=== PATIENT | male | born 1960 | race Caucasian/White ===

== ENCOUNTER 2024-08-15 06:23 | Day surgery (SDC) | payer BC, SELFPAY ==
[2024-08-09 14:08] LABS: Hematocrit 38.4 % (39.0-52.0); Mean Corp Hgb Conc. 33.9 g/dL (33.0-37.0); Mean Corpuscular Hgb 31.8 pg (27.0-31.0); Mean Corpuscular Volume 93.9 fL (80.0-94.0); Mean Platelet Volume 9.4 fL (7.4-10.4); Platelet Count 248 10^3/uL (130-400); Red Blood Cell Count 4.09 10^6/uL (4.70-6.10); Red Cell Dist. Width 13.2 % (11.5-14.5); White Blood Cell Count 4.9 10^3/uL (4.8-10.8)
[2024-08-09 14:13] VITALS: BMI 29.3
[2024-08-09 14:31] LABS: Blood Urea Nitrogen 19 mg/dl (9-20); Calcium 9.5 mg/dl (8.4-10.2); Carbon Dioxide 30 mmol/L (22-30); Chloride 102 mmol/L (98-107); Estimated Creatinine Clearance > 125 ml/min; Glucose 102 mg/dl (70-99); Potassium 4.7 mmol/L (3.5-5.1); Sodium 141 mmol/L (135-145); eGFR > 60.00
[2024-08-15] VITALS (8 sets, daily range): BP systolic 122–139; BP diastolic 77–95; BMI 29.3
--- NOTE | 2024-08-15 06:51 | HP.FOC2 ---
Focused History & Physical
Chief Complaint
HPI:
Chief Complaint: Bilateral inguinal hernias
HPI / Indication for Planned Procedure: Patient is a 64-year-old male with recent history of right inguinal swelling that has slowly increased in size. He has an awareness of his hernia being present on a regular basis. There is visible swelling
which is reducible. No significant associated pain. No symptom suggestive of intermittent incarceration or obstruction. Outpatient evaluation confirmed the presence of a readily apparent and visible right inguinal hernia and reducible left
inguinal hernia recurrence. He presents today for scheduled operative correction.
Relevant Past Medical History: Other (Insomnia, anxiety, BPH)
Relevant Social History: Negative
Relevant Family History: Negative
Relevant Past Surgical History: Positive for (Left inguinal hernia repair as a child, left knee arthroscopy)
Review of Systems
Review of Pertinent Systems: All Systems Negative
Medication
See Medication form for detailed medications: Yes
Medication List (including Herbals & OTC):
diphenhydramine HCl 50 mg capsule (Unisom SleepGels) 50 mg PO HS 08/08/24
tamsulosin 0.4 mg capsule 0.4 mg PO HS 08/08/24
Medications Reviewed: Yes
Allergies and Reactions
Patient has Allergies: No
Noted Allergies and Reactions:
Allergy/AdvReac Type Severity Reaction Status Date / Time
No Known Allergies Allergy Unverified 08/08/24 09:44
Pertinent Physical Exam
All Other Systems: Negative
Head/Neck: Normal
Lungs: Normal
Heart: Normal
Abdomen: Other (Bilateral inguinal hernias right larger than left. Left inguinal surgical scar)
Extremities: Normal
Neurological: Normal
Diagnosis / Assessment
64-year-old male presenting for scheduled operative correction of bilateral inguinal hernias. Right side initial, left side recurrent from childhood repair.
Plan / Procedure
Robotic assisted laparoscopic repair of bilateral inguinal hernias with mesh
Anesthesia/Sedation to be done by Anesthesia Provider: Yes
--- NOTE | 2024-08-15 06:54 | W.SUR.PREOP ---
Pre-Operative Surgical Note
-
I have examined this patient prior to the performance of the scheduled procedure.
The patient's condition is unchanged from the time of the current History and
Physical and the patient is able to undergo the scheduled procedure.
[2024-08-15] MEDS: TYLENOL 1000 MG PO (07:41)
[2024-08-15] MEDS: NORMOSOL-R/PLASMALYTE-A 1000 IV (07:41)
--- NOTE | 2024-08-15 10:27 | W.IMMPOSTOP ---
Addendum entered and electronically signed by Amado Merida MD 08/15/24 11:04:
#[id number]
The assistance of Sheryl Ureña PA-C was required due to the complexity of the procedure. During the procedure Sheryl Ureña PA-C assisted with port placement, robotic instrumentation and suture material exchanges, and closure of the surgical incision
sites. I was present for the entirety of the operative procedure.
Original Note:
Surgical Immed Post Op Note
-
Primary Surgeon: Amado Merida MD
Assisting Surgeon: Sheryl Ureña PA-C
Pre-op Diagnosis: Bilateral inguinal hernias
Post-op Diagnosis: Bilateral inguinal hernias; right direct and indirect, left direct
Procedure Performed: Robotic assisted laparoscopic BECK repair bilateral inguinal hernias with mesh; 3D max mid weight extra-large x 2
Anesthesia Type: GETA +0.25% Marcaine
Specimen / Cultures: None
Estimated Blood Loss: 6 mL
Complications: None immediate
Operative Findings: Right direct and indirect inguinal hernias. Small lipoma reduced and excised to facilitate mesh placement. 3D max extra-large mid weight mesh repair. Left direct inguinal hernia and lipoma of cord reduced and excised to
facilitate mesh placement. 3D max extra-large mid weight mesh repair. No incidental findings. Mesh secured to Cody's ligament with interrupted 2-0 Vicryl suture. Peritoneal flap closed with 2-0 Monocryl STRATAFIX spiral.
[2024-08-15] MEDS: SUBLIMAZE 25 MCG IV (11:00)
== END 2024-08-15 12:16 | disposition home or self-care (01) ==
LOC: SDS 06:23
PROVIDERS: ATTENDING PHYSICIAN Surgery; FAMILY PHYSICIAN Internal Medicine
DX: K40.20 Bilateral inguinal hernia, without obstruction or gangrene, not specified as recurrent (principal)
CPT/HCPCS: 49650; 36415; 80048; 85027; 93005; C1781

== ENCOUNTER → 2025-03-02 14:46 | Outpatient (REF) | payer SELFPAY | LOC: HWRAD 14:46 | PROVIDERS: ATTENDING PHYSICIAN Internal Medicine | DX: Z00.00 Encounter for general adult medical examination without abnormal findings (principal) | CPT/HCPCS: 75571 ==